=== PATIENT | female | born 1965 | race Caucasian/White ===

== ENCOUNTER 2017-04-07 06:58 | Emergency (ER) | payer MEDICARE, MEDICAID ==
[~2017-04-07] VITALS: Ht 157.5 cm; Wt 63.5 kg
[~2017-04-07 06:58] MED LIST: ALBU8.5H IH; AZIT-17 PO; AZIT-18 PO; FLU44R INH; GABA-549 PO; KET10 PO; LEVO75TA73 PO; LORA-629 PO; MELO-205 PO; METH4TAB66 PO; MOME220A3 INH; ONDA4TAB PO; TIZA-128 PO
--- NOTE | 2017-04-07 07:14 | ER Report ---
History and Physical Time Seen By MD: 07:04 HPI/ROS CC: Sore ears fever HPI: 51-year-old female with a past medical history of asthma, fibromyalgia, and liver disease. Patient reports a 48 hour history of fever or chills nausea vomiting. She states that her left ear is excruciatingly sore. She states that she is not taking anything to break her fever secondary to her liver disease. She is had decreased fluid intake. Patient denies any chest pain chest pressure , shortness of breath is at her baseline with her asthma. No increased use of inhalers. No productive cough. No palpitations. No alleviating factors. Activity makes it worse. ROS: 12 point review of systems essentially negative other than what's mentioned in history of present illness. NURSES AND OLD MEDICAL RECORDS: Reviewed PMH: Reviewed SURGICAL HX: Reviewed FAMILY HX: Noncontributory SOCIAL HX: She denies alcohol or illicit drugs. VITAL SIGNS: Reviewed CONSTITUTIONAL: 51-year-old female in minimal to moderate distress. PHYSICAL EXAM: HEENT: Pupils equal round reactive to light and accommodate, EOMI, tympanic membranes pearly white umbo present with good light reflex. Lips dry mucous membranes moist gums nonbleeding uvula midline and rises equally with phonation, oropharynx noninjected, teeth intact. NECK: Neck supple, thyroid not appreciated, anterior and posterior cervical lymphadenopathy not appreciated. Trachea midline and rises equally with phonation. CARDIAC: S1-S2 regular rate rhythm no murmurs rubs or gallops. LUNGS: Lungs clear bilaterally posteriorly in all zhang. Good air movement. ABDOMEN: Abdomen soft, nondistended, bowel sounds active in all 4 quadrants, no bruits noted, no CVA tenderness. MUSCULOSKELETAL: Strength 5 out of 5 x 4 extremities, no deformities noted. NEUROLOGIC: Patient alert and oriented by 3 Allergies: Coded Allergies: morphine (Verified Allergy, Severe, 04/07/17) promethazine (Unverified Allergy, Severe, SEIZURES, 04/07/17) succinylcholine (Unverified Allergy, Severe, 04/07/17) Uncoded Allergies: ANYTHING WITH A STINGER (Allergy, Unknown, THROAT SWELLS UP, 11/06/14) Home Meds Reported Medications Fluticasone Prop 44 Mcg (FLOVENT HFA 44 MCG) 44 Mcg Inha, 250 MCG INH using flovent diskus, INH 11/07/16 Mometasone Furoate (ASMANEX) 220 Mcg Inha, 220 MCG INH DIRECTED 11/07/16 Albuterol Sulfate 90 Mcg/Act (PROAIR HFA 90 MCG/ACT) 8.5 Gm Hfa.aer.ad, 2 PUFF IH Q4-6H, INHALER 11/07/16 Loratadine (LORATADINE) 10 Mg Tablet, 10 MG PO QDAY 11/07/16 Levothyroxine Sodium (LEVOTHYROXINE SODIUM) 75 Mcg Tablet, 137 MCG PO QDAY, TAB 11/07/16 Tizanidine Hcl (TIZANIDINE HCL) 4 Mg Tablet, 4 MG PO QDAY 11/07/16 Gabapentin (GABAPENTIN) 300 Mg Capsule, 300 MG PO QID, CAPSULE 11/07/16 Meloxicam (MELOXICAM) 7.5 Mg Tablet, 7.5 MG PO BID Y for HEADACHE 11/07/16 Discontinued Scripts Azithromycin (Z-PACK) 250 Mg Tablet, 0 PO QDAY, #6 DOSE-PACK Prov:MARIE PABLO PA-C 11/07/16 Ketorolac Tromethamine (KETOROLAC TROMETHAMINE) 10 Mg Tab, 10 MG PO Q8H for PAIN , #15 TAB Prov:MARIE PABLO PA-C 11/07/16 Hx Smoking: Yes ( MUCH POSSIBLE) Smoking Status: Current: Every Day Smoker Hx Substance Use Disorder: No Hx Alcohol Use: No Constitutional Vital Sign - Last 24 Hours 04/07/17 07:03 Temp 98.9 Pulse 107 Resp 90 B/P (MAP) 121/84 Pulse Ox 92 O2 Delivery Room Air Medical Decision Making Data Points Result Diagram: 04/07/17 0732 04/07/17 0732 Laboratory Hematology Test 04/07/17 07:04 04/07/17 07:18 04/07/17 07:32 Urine Color Yellow Urine Clarity Clear Urine pH 5.0 pH (4.8-9.5) Urine Specific Oolitic 1.028 Urine Protein Negative mg/dL (NEGATIVE) Urine Glucose (UA) Negative mg/dL (NEGATIVE) Urine Ketones Negative mg/dL (NEGATIVE) Urine Blood Negative (NEGATIVE) Urine Nitrite Negative (NEGATIVE) Urine Bilirubin Negative (NEGATIVE) Urine Urobilinogen Negative mg/dL (0.2-1.9) Urine Leukocyte Esterase Negative (NEGATIVE) Urine RBC 1 /HPF (0-2/HPF) Urine WBC None /HPF (0-5/HPF) Urine Squamous Epithelial Cells Moderate /LPF (</=FEW) Urine Bacteria Few /HPF (NONE-FEW) Urine Hyaline Casts Few /LPF (NONE-FEW) Urine Mucus Few /HPF (NONE-FEW) Influenza Type A Antigen Negative (NEGATIVE) Influenza Type B Antigen Negative (NEGATIVE) Group A Streptococcus Screen Negative (NEGATIVE) Red Blood Count 4.95 M/uL (4.17-5.56) Mean Corpuscular Volume 92.6 fL (80.0-96.0) Mean Corpuscular Hemoglobin 31.7 pg (26.0-33.0) Mean Corpuscular Hemoglobin Concent 34.2 g/dL (32.0-36.0) Red Cell Distribution Width 14.3 % (11.5-14.5) Mean Platelet Volume 8.0 fL (7.2-11.1) Neutrophils (%) (Auto) 79.3 % (39.4-72.5) Lymphocytes (%) (Auto) 14.6 % (17.6-49.6) Monocytes (%) (Auto) 5.2 % (4.1-12.4) Eosinophils (%) (Auto) 0.1 % (0.4-6.7) Basophils (%) (Auto) 0.8 % (0.3-1.4) Nucleated RBC Relative Count (auto) 0.0 /100WBC Neutrophils # (Auto) 5.2 K/uL (2.0-7.4) Lymphocytes # (Auto) 1.0 K/uL (1.3-3.6) Monocytes # (Auto) 0.3 K/uL (0.3-1.0) Eosinophils # (Auto) 0.0 K/uL (0.0-0.5) Basophils # (Auto) 0.1 K/uL (0.0-0.1) Nucleated RBC Absolute Count (auto) 0.00 K/uL Sodium Level 134 mmol/L (137-145) Potassium Level 3.1 mmol/L (3.5-5.0) Chloride Level 99 mmol/L (98-107) Carbon Dioxide Level 25 mmol/L (22-31) Blood Urea Nitrogen 13 mg/dl (7-18) Creatinine 0.70 mg/dl (0.52-1.04) Glomerular Filtration Rate Calc > 60.0 Random Glucose 113 mg/dl (75-110) Calcium Level 8.6 mg/dl (8.4-10.2) Total Bilirubin 1.3 mg/dl (0.2-1.3) Aspartate Amino Transf (AST/SGOT) 16 U/L (0-35) Alanine Aminotransferase (ALT/SGPT) 19 U/L (0-56) Alkaline Phosphatase 81 U/L (0-126) Total Protein 7.2 gm/dl (6.3-8.2) Albumin 3.9 g/dl (3.5-5.0) Chemistry Test 04/07/17 07:04 04/07/17 07:18 04/07/17 07:32 Urine Color Yellow Urine Clarity Clear Urine pH 5.0 pH (4.8-9.5) Urine Specific Oolitic 1.028 Urine Protein Negative mg/dL (NEGATIVE) Urine Glucose (UA) Negative mg/dL (NEGATIVE) Urine Ketones Negative mg/dL (NEGATIVE) Urine Blood Negative (NEGATIVE) Urine Nitrite Negative (NEGATIVE) Urine Bilirubin Negative (NEGATIVE) Urine Urobilinogen Negative mg/dL (0.2-1.9) Urine Leukocyte Esterase Negative (NEGATIVE) Urine RBC 1 /HPF (0-2/HPF) Urine WBC None /HPF (0-5/HPF) Urine Squamous Epithelial Cells Moderate /LPF (</=FEW) Urine Bacteria Few /HPF (NONE-FEW) Urine Hyaline Casts Few /LPF (NONE-FEW) Urine Mucus Few /HPF (NONE-FEW) Influenza Type A Antigen Negative (NEGATIVE) Influenza Type B Antigen Negative (NEGATIVE) Group A Streptococcus Screen Negative (NEGATIVE) White Blood Count 6.5 k/uL (4.5-11.0) Red Blood Count 4.95 M/uL (4.17-5.56) Hemoglobin 15.7 g/dL (12.0-16.0) Hematocrit 45.9 % (34.0-47.0) Mean Corpuscular Volume 92.6 fL (80.0-96.0) Mean Corpuscular Hemoglobin 31.7 pg (26.0-33.0) Mean Corpuscular Hemoglobin Concent 34.2 g/dL (32.0-36.0) Red Cell Distribution Width 14.3 % (11.5-14.5) Platelet Count 340 K/uL (150-450) Mean Platelet Volume 8.0 fL (7.2-11.1) Neutrophils (%) (Auto) 79.3 % (39.4-72.5) Lymphocytes (%) (Auto) 14.6 % (17.6-49.6) Monocytes (%) (Auto) 5.2 % (4.1-12.4) Eosinophils (%) (Auto) 0.1 % (0.4-6.7) Basophils (%) (Auto) 0.8 % (0.3-1.4) Nucleated RBC Relative Count (auto) 0.0 /100WBC Neutrophils # (Auto) 5.2 K/uL (2.0-7.4) Lymphocytes # (Auto) 1.0 K/uL (1.3-3.6) Monocytes # (Auto) 0.3 K/uL (0.3-1.0) Eosinophils # (Auto) 0.0 K/uL (0.0-0.5) Basophils # (Auto) 0.1 K/uL (0.0-0.1) Nucleated RBC Absolute Count (auto) 0.00 K/uL Glomerular Filtration Rate Calc > 60.0 Calcium Level 8.6 mg/dl (8.4-10.2) Total Bilirubin 1.3 mg/dl (0.2-1.3) Aspartate Amino Transf (AST/SGOT) 16 U/L (0-35) Alanine Aminotransferase (ALT/SGPT) 19 U/L (0-56) Alkaline Phosphatase 81 U/L (0-126) Total Protein 7.2 gm/dl (6.3-8.2) Albumin 3.9 g/dl (3.5-5.0) Urinalysis Test 04/07/17 07:04 Urine Color Yellow Urine Clarity Clear Urine pH 5.0 pH (4.8-9.5) Urine Specific Oolitic 1.028 Urine Protein Negative mg/dL (NEGATIVE) Urine Glucose (UA) Negative mg/dL (NEGATIVE) Urine Ketones Negative mg/dL (NEGATIVE) Urine Blood Negative (NEGATIVE) Urine Nitrite Negative (NEGATIVE) Urine Bilirubin Negative (NEGATIVE) Urine Urobilinogen Negative mg/dL (0.2-1.9) Urine Leukocyte Esterase Negative (NEGATIVE) Urine RBC 1 /HPF (0-2/HPF) Urine WBC None /HPF (0-5/HPF) Urine Squamous Epithelial Cells Moderate /LPF (</=FEW) Urine Bacteria Few /HPF (NONE-FEW) Urine Hyaline Casts Few /LPF (NONE-FEW) Urine Mucus Few /HPF (NONE-FEW) ED Course/Re-evaluation ED Course Patient with hypokalemia 3.1. Patient was given a Klor-Con 40 mEq by mouth. Within normal limits for influenza. Ears do not appear to be inflamed. This is a viral syndrome as the patient is afebrile. Patient will be discharged home follow up with PCP with regular measures of comfort. Patient most likely has a viral syndrome and now has become afebrile. Patient will be discharged patient with a plan and in agreement. Re-evaluation Medical decision-making been excluded viral syndrome, influenza, pneumonia. Decision to Disposition Date: Apr 07, 2017 Decision to Disposition Time: 08:17 Depart Departure Latest Vital Signs Vital Signs Date Time Temp Pulse Resp B/P (MAP) Pulse Ox O2 Delivery O2 Flow Rate FiO2 04/07/17 07:03 98.9 107 90 121/84 92 Room Air Impression: Primary Impression: Viral syndrome Condition: Improved Disposition: HOME OR SELF-CARE Referrals: AFSHIN BUSTAMANTE (PCP) Patient Instructions: Viral Syndrome (ED) Additional Instructions: Viral syndrome. Urinary broken your fever. He will slowly improve. Continue to drink 20 of fluids. Follow-up with your regular physician. I and the staff wanted to thank you for allowing us to take care of your needs today in the emergency department at [facility]. We have tried to answer all of your questions and concerns. Please feel free to return to the emergency department for any further concerns or unanswered questions. JENIFER LEIVA MD Apr 07, 2017 07:14
[2017-04-07] MEDS ORDERED: ONDANSETRON 4 MG/2 ML VIAL IVP ONE (07:20)
[2017-04-07 07:44] LABS: PLATELET COUNT, AUTOMATED 340 K/uL (150-450)
[2017-04-07] MEDS ORDERED: POTASSIUM CHL 20 MEQ TABCR PO ONE (08:15)
[2017-04-07 08:20] VITALS: BP 117/68
== END 2017-04-07 08:25 | disposition home or self-care (01) ==
LOC: ER 07:00
DX: B34.9 Viral infection, unspecified (principal)
CPT/HCPCS: 36415; 81001; 85025; 87081; 87502; 87880; 96374; 99283; A9270; J2405; 82040; 82247; 82310; 82374; 82435; 82565; 82947; 84075; 84132; 84155; 84295; 84450; 84460; 84520

== ENCOUNTER 2017-05-20 10:04 | Emergency (ER) | payer MEDICARE, MEDICAID ==
--- NOTE | 2017-05-20 10:30 | ER Report ---
History and Physical Time Seen By MD: 10:28 Hx. of Stated Complaint: CHEST PAIN THAT STARTED 4 DAYS AGO BUT SIGNIFICANTLY WORSENED THIS AM. DESCRIBED SHARP PAIN AND INABILITY TO TAKE DEEP BREATH. HPI/ROS CHIEF COMPLAINT: Chest pain HISTORY OF PRESENT ILLNESS: Patient is a 51-year-old female who presents emergency Department with 4 days of right-sided pleuritic sharp chest pain that worsened over the last 24 hours. The pain does not seem exertional or positional related, she states the pain does radiate to the back. Pain is not related to eating. The pain also comes and goes in waves she is currently 8 out of 10 in intensity. This is associated with shortness of breath. Patient denies headaches, body aches fevers chills or other infectious type symptoms. Patient denies any abdominal pain including nausea vomiting or diarrhea. REVIEW OF SYSTEMS: Constitutional: No fever, no chills. Eyes: No discharge. ENT: No sore throat. Cardiovascular: Right-sided chest pain Respiratory: No cough, reports shortness of breath. Gastrointestinal: No abdominal pain, no vomiting. Genitourinary: No hematuria. Musculoskeletal: No back pain. Skin: No rashes. Neurological: No headache. Allergies: Coded Allergies: morphine (Verified Allergy, Severe, 04/07/17) promethazine (Unverified Allergy, Severe, SEIZURES, 04/07/17) succinylcholine (Unverified Allergy, Severe, 04/07/17) Uncoded Allergies: ANYTHING WITH A STINGER (Allergy, Unknown, THROAT SWELLS UP, 11/06/14) Home Meds Active Scripts Pantoprazole Sodium (PANTOPRAZOLE SODIUM) 40 Mg Tablet.dr, 40 MG PO QDAY for 14 Days, #14 TAB.SR Prov:DORIE LOUIE MD 05/20/17 Hydrocodone Bit/Acetaminophen (HYDROCODON-ACETAMINOPHEN 5-325) 1 Each Tablet, 1 EACH PO Q4-6H Y for PAIN, #12 TAB 0 Refills TAKE ONE TABLET BY MOUTH EVERY 4-6 HOURS NEEDED FOR PAIN Prov:DORIE LOUIE MD 05/20/17 Reported Medications Fluticasone Prop 44 Mcg (FLOVENT HFA 44 MCG) 44 Mcg Inha, 250 MCG INH using flovent diskus, INH 11/07/16 Mometasone Furoate (ASMANEX) 220 Mcg Inha, 220 MCG INH DIRECTED 11/07/16 Albuterol Sulfate 90 Mcg/Act (PROAIR HFA 90 MCG/ACT) 8.5 Gm Hfa.aer.ad, 2 PUFF IH Q4-6H, INHALER 11/07/16 Loratadine (LORATADINE) 10 Mg Tablet, 10 MG PO QDAY 11/07/16 Levothyroxine Sodium (LEVOTHYROXINE SODIUM) 75 Mcg Tablet, 137 MCG PO QDAY, TAB 11/07/16 Tizanidine Hcl (TIZANIDINE HCL) 4 Mg Tablet, 4 MG PO QDAY 11/07/16 Gabapentin (GABAPENTIN) 300 Mg Capsule, 300 MG PO QID, CAPSULE 11/07/16 Meloxicam (MELOXICAM) 7.5 Mg Tablet, 7.5 MG PO BID Y for HEADACHE 11/07/16 Past Medical/Surgical History Past medical history significant for allergic rhinitis, history of hypothyroidism, fibromyalgia Hx Smoking: Yes ( MUCH POSSIBLE) Smoking Status: Current: Every Day Smoker Hx Substance Use Disorder: No Hx Alcohol Use: No Constitutional Vital Sign - Last 24 Hours 05/20/17 05/20/17 05/20/17 05/20/17 10:08 10:30 11:30 12:00 Temp 98.4 Pulse 93 78 79 Resp 20 11 20 10 B/P (MAP) 142/84 140/94 (109) 140/93 (109) 150/95 (113) Pulse Ox 93 91 90 87 O2 Delivery Room Air 05/20/17 05/20/17 05/20/17 05/20/17 12:30 13:00 13:30 14:00 Pulse 80 93 Resp 14 19 17 B/P (MAP) 154/99 (117) 167/148 (154) 162/105 (124) 150/103 (119) Pulse Ox 88 87 93 96 Intake and Output 05/20/17 05/20/17 05/21/17 15:00 23:00 07:00 Intake Total 50 ml Balance 50 ml Physical Exam General/Constitutional: Patient is awake, alert, nontoxic and in no acute respiratory distress. Head: Normocephalic and atraumatic. Eyes: Conjunctival clear, Oropharyngeal: Mucous membranes are moist. There is no pharyngeal erythema or exudate. There are no palatal petechiae. Uvula is midline and symmetrical. Neck: Supple, no adenopathy. Cardiovascular: Heart is regular rate and rhythm without audible murmurs, rubs or gallops. Pulmonary: Lungs are clear to auscultation bilaterally. There are no wheezes, rales, or rhonchi. Chest rise is symmetrical Abdomen: Soft, nontender, no guarding or peritoneal signs. Extremities: No gross deformities, No peripheral cyanosis. Able to move all 4 extremities. Neuro: Alert and oriented X3, Skin: No rashes, skin is warm dry and well perfused. Medical Decision Making Data Points Result Diagram: 05/20/17 1017 05/20/17 1017 Laboratory Hematology Test 05/20/17 00:00 05/20/17 10:17 05/20/17 13:40 Lipase 106 U/L (23-300) Red Blood Count 5.07 M/uL (4.17-5.56) Mean Corpuscular Volume 93.3 fL (80.0-96.0) Mean Corpuscular Hemoglobin 31.7 pg (26.0-33.0) Mean Corpuscular Hemoglobin Concent 34.0 g/dL (32.0-36.0) Red Cell Distribution Width 14.1 % (11.5-14.5) Mean Platelet Volume 7.9 fL (7.2-11.1) Neutrophils (%) (Auto) 67.4 % (39.4-72.5) Lymphocytes (%) (Auto) 22.3 % (17.6-49.6) Monocytes (%) (Auto) 7.5 % (4.1-12.4) Eosinophils (%) (Auto) 1.9 % (0.4-6.7) Basophils (%) (Auto) 0.9 % (0.3-1.4) Nucleated RBC Relative Count (auto) 0.1 /100WBC Neutrophils # (Auto) 6.5 K/uL (2.0-7.4) Lymphocytes # (Auto) 2.1 K/uL (1.3-3.6) Monocytes # (Auto) 0.7 K/uL (0.3-1.0) Eosinophils # (Auto) 0.2 K/uL (0.0-0.5) Basophils # (Auto) 0.1 K/uL (0.0-0.1) Nucleated RBC Absolute Count (auto) 0.01 K/uL Prothrombin Time 12.5 seconds (12.0-14.4) Prothromb Time International Ratio 0.94 Activated Partial Thromboplast Time 31 seconds (23-35) D-Dimer Quantitative (PE/DVT) 0.46 ug/ml (0-0.50) Sodium Level 140 mmol/L (137-145) Potassium Level 4.1 mmol/L (3.5-5.0) Chloride Level 101 mmol/L (98-107) Carbon Dioxide Level 25 mmol/L (22-31) Blood Urea Nitrogen 11 mg/dl (7-18) Creatinine 0.60 mg/dl (0.52-1.04) Glomerular Filtration Rate Calc > 60.0 Random Glucose 125 mg/dl (75-110) Calcium Level 9.3 mg/dl (8.4-10.2) Total Bilirubin 0.8 mg/dl (0.2-1.3) Aspartate Amino Transf (AST/SGOT) 24 U/L (0-35) Alanine Aminotransferase (ALT/SGPT) 38 U/L (0-56) Alkaline Phosphatase 87 U/L (0-126) B-Type Natriuretic Peptide 14 pg/ml (0-100) Total Protein 7.0 gm/dl (6.3-8.2) Albumin 4.1 g/dl (3.5-5.0) Troponin I < 0.012 ng/ml Chemistry Test 05/20/17 00:00 05/20/17 10:17 05/20/17 13:40 Lipase 106 U/L (23-300) White Blood Count 9.6 k/uL (4.5-11.0) Red Blood Count 5.07 M/uL (4.17-5.56) Hemoglobin 16.1 g/dL (12.0-16.0) Hematocrit 47.3 % (34.0-47.0) Mean Corpuscular Volume 93.3 fL (80.0-96.0) Mean Corpuscular Hemoglobin 31.7 pg (26.0-33.0) Mean Corpuscular Hemoglobin Concent 34.0 g/dL (32.0-36.0) Red Cell Distribution Width 14.1 % (11.5-14.5) Platelet Count 361 K/uL (150-450) Mean Platelet Volume 7.9 fL (7.2-11.1) Neutrophils (%) (Auto) 67.4 % (39.4-72.5) Lymphocytes (%) (Auto) 22.3 % (17.6-49.6) Monocytes (%) (Auto) 7.5 % (4.1-12.4) Eosinophils (%) (Auto) 1.9 % (0.4-6.7) Basophils (%) (Auto) 0.9 % (0.3-1.4) Nucleated RBC Relative Count (auto) 0.1 /100WBC Neutrophils # (Auto) 6.5 K/uL (2.0-7.4) Lymphocytes # (Auto) 2.1 K/uL (1.3-3.6) Monocytes # (Auto) 0.7 K/uL (0.3-1.0) Eosinophils # (Auto) 0.2 K/uL (0.0-0.5) Basophils # (Auto) 0.1 K/uL (0.0-0.1) Nucleated RBC Absolute Count (auto) 0.01 K/uL Prothrombin Time 12.5 seconds (12.0-14.4) Prothromb Time International Ratio 0.94 Activated Partial Thromboplast Time 31 seconds (23-35) D-Dimer Quantitative (PE/DVT) 0.46 ug/ml (0-0.50) Glomerular Filtration Rate Calc > 60.0 Calcium Level 9.3 mg/dl (8.4-10.2) Total Bilirubin 0.8 mg/dl (0.2-1.3) Aspartate Amino Transf (AST/SGOT) 24 U/L (0-35) Alanine Aminotransferase (ALT/SGPT) 38 U/L (0-56) Alkaline Phosphatase 87 U/L (0-126) B-Type Natriuretic Peptide 14 pg/ml (0-100) Total Protein 7.0 gm/dl (6.3-8.2) Albumin 4.1 g/dl (3.5-5.0) Troponin I < 0.012 ng/ml Coagulation Test 05/20/17 10:17 Prothrombin Time 12.5 seconds Prothromb Time International Ratio 0.94 Activated Partial Thromboplast Time 31 seconds D-Dimer Quantitative (PE/DVT) 0.46 ug/ml EKG/Imaging EKG Interpretation 05/20/2017 10:29:41 am EKG shows evidence of right atrial enlargement but otherwise shows normal sinus rhythm with no significant ST segment or T-wave abnormalities. Monitor Interpretation: Normal Sinus Rhythm Imaging FACILITY: [facility] PATIENT NAME: Jenny Chakraborty : 1965 MR: [id number] V: [id number] EXAM DATE: [id number] ORDERING PHYSICIAN: DORIE LOUIE TECHNOLOGIST: Location: [facility] Patient: Jenny Chakraborty : 1965 Visit/Account:[id number] Date of Sevice: 05/20/2017 2 VIEWS CHEST INDICATION: Smoking. Chest pain on both sides. COMPARISON: November 09, 2016. FINDINGS: Heart size within normal limits. There is no focal infiltrate or lobar consolidation. There is no pneumothorax or pleural effusion. Note is made of cervical fusion hardware. IMPRESSION: 1. No acute cardiopulmonary process. Report Dictated By: Ward Miller MD at 05/20/2017 11:21 AM Report E-Signed By: Ward Miller MD at 05/20/2017 11:22 AM WSN:[id number] ED Course/Re-evaluation ED Course 05/20/2017 10:40:17 am When at this time will be cardiac workup including d-dimer to look for evidence of either acute coronary syndrome or pulmonary embolism. We will obtain chest x- ray EKG. We will treat pain with Toradol patient will be given aspirin. 05/20/2017 1:30:08 pm patient sleeping comfortably at this time awaiting results of 2nd troponin. Re-evaluation 05/20/2017 2:11:57 pm patient with negative delta troponin. Fillet symptoms may be related to pleurisy versus gastritis. Plan will be discharge home with short course of oral Lortab and 2 week course of Protonix. Decision to Disposition Date: May 20, 2017 Decision to Disposition Time: 14:11 Depart Departure Latest Vital Signs Vital Signs Date Time Temp Pulse Resp B/P (MAP) Pulse Ox O2 Delivery O2 Flow Rate FiO2 05/20/17 14:00 150/103 (119) 96 05/20/17 13:30 17 05/20/17 13:00 93 05/20/17 10:08 98.4 Room Air Impression: Primary Impression: Pleurisy Condition: Improved Referrals: DIANNA,AFSHIN [employer] ASSISTANT (PCP) 2 Days if symptoms persist New Scripts Pantoprazole Sodium (PANTOPRAZOLE SODIUM) 40 Mg Tablet.dr 40 MG PO QDAY for 14 Days, #14 TAB.SR Prov: DORIE LOUIE MD 05/20/17 Hydrocodone Bit/Acetaminophen (HYDROCODON-ACETAMINOPHEN 5-325) 1 Each Tablet 1 EACH PO Q4-6H Y for PAIN, #12 TAB 0 Refills TAKE ONE TABLET BY MOUTH EVERY 4-6 HOURS NEEDED FOR PAIN Prov: DORIE LOUIE MD 05/20/17 Patient Instructions: Gastroesophageal Reflux Disease (ED), Pleurisy (DC) DORIE LOUIE MD May 20, 2017 10:30
[2017-05-20] MEDS ORDERED: ASPIRIN 81 MG CHEW PO ONE (10:35)
[2017-05-20 10:40] LABS: PLATELET COUNT, AUTOMATED 361 K/uL (150-450)
[2017-05-20] MEDS ORDERED: LORazepam 2 MG/ML VIAL IVP ONE (10:40)
[2017-05-20] MEDS ORDERED: KETOROLAC 15 MG/ML VIAL IVP ONE (10:40)
--- NOTE | 2017-05-20 10:50 | EKG ---
FACILITY: [facility] PATIENT NAME: JULISSA DAVILA : [id number] MR: [id number] V: [id number] EXAM DATE: ORDERING PHYSICIAN: DORIE LOUIE TECHNOLOGIST: MICAELA Mendoza Reason : chest pain Blood Pressure : / mmHG Vent. Rate : 082 BPM Atrial Rate : 082 BPM P-R Int : 134 ms QRS Dur : 088 ms QT Int : 382 ms P-R-T Axes : 079 083 062 degrees QTc Int : 446 ms Normal sinus rhythm Probable right atrial enlargement Borderline ECG When compared with ECG of 09-NOV-2016 14:48, Previous ECG has undetermined rhythm, needs review Confirmed by NATHANIEL ZAMORA ([id number]) on 05/20/2017 3:29:55 PM Referred By: JACY Confirmed By:NATHANIEL ZAMORA
[2017-05-20 10:54] LABS: INR 0.94
--- NOTE | 2017-05-20 11:26 | RADIOLOGY IMAGING REPORT ---
FACILITY: [facility] [place] PATIENT NAME: Jenny Chakraborty : 1965 MR: [id number] V: [id number] EXAM DATE: ORDERING PHYSICIAN: DORIE LOUIE TECHNOLOGIST: Location: [facility] [place] Patient: Jenny Chakraborty : 1965 Visit/Account:[id number] Date of Sevice: 05/20/2017 2 VIEWS CHEST INDICATION: Smoking. Chest pain on both sides. COMPARISON: November 09, 2016. FINDINGS: Heart size within normal limits. There is no focal infiltrate or lobar consolidation. There is no pneumothorax or pleural effusion. Note is made of cervical fusion hardware. IMPRESSION: 1. No acute cardiopulmonary process. Report Dictated By: Ward Miller MD at 05/20/2017 11:21 AM Report E-Signed By: Ward Miller MD at 05/20/2017 11:22 AM WSN:[id number]
[2017-05-20] MEDS ORDERED: FAMOTIDINE(*) 20MG/50ML PREMIX 50 ML IVPB ONE (13:00)
[2017-05-20] MEDS ORDERED: ONDANSETRON 4 MG/2 ML VIAL IVP ONE (13:00)
[2017-05-20] MEDS ORDERED: ACETAMINOPHEN 325 MG TAB PO ONE (13:45)
[2017-05-20] MEDS ORDERED: LOR5/325 PO (14:10)
[2017-05-20] MEDS ORDERED: PANT40TA65 PO (14:10)
[2017-05-20 14:21] VITALS: BP 133/85
== END 2017-05-20 14:29 | disposition home or self-care (01) ==
LOC: ER 10:13
DX: R09.1 Pleurisy (principal); F17.210 Nicotine dependence, cigarettes, uncomplicated
CPT/HCPCS: 71046; 83690; 83880; 84484; 85025; 85379; 85610; 85730; 93005; 96365; 96375; 99284; A9270; J1885; J2060; J2405; J3490; 82040; 82247; 82310; 82374; 82435; 82565; 82947; 84075; 84132; 84155; 84295; 84450; 84460; 84520

== ENCOUNTER → 2017-11-15 | Outpatient (CLI) | payer MEDICARE, MEDICAID ==
[~2017-11-15] MED LIST changes: +LOR5/325 PO; +PANT40TA65 PO
[2017-11-15 15:06] LABS: PLATELET COUNT, AUTOMATED 354 K/uL (150-450)
[2017-11-15 15:18] LABS: LDL CHOLESTEROL 114 mg/dl
== END ==
LOC: LAB 14:51
PROVIDERS: ATTEND Nurse Practitioner Psychiatric/Mental Health
DX: E78.5 Hyperlipidemia, unspecified (principal); E03.9 Hypothyroidism, unspecified; M79.7 Fibromyalgia
CPT/HCPCS: 36415; 82040; 82247; 82310; 82374; 82435; 82465; 82565; 82947; 83718; 84075; 84132; 84155; 84295; 84443; 84450; 84460; 84478; 84520; 85025